=== PATIENT | male | born 1985 | race Two or more races ===

== ENCOUNTER 2023-07-02 13:11 | Emergency (ER) | payer OTHER, SELFPAY ==
[2023-07-02 13:14] VITALS: BP 141/90
--- NOTE | 2023-07-02 14:18 | ED.GENMED ---
History of Present Illness
General
Chief Complaint: Alcohol Problem
Time Seen by Provider: 07/02/23 13:58
Travel History
Have you had any contact with someone who has COVID-19?: No
Do you have any symptoms of coronavirus? Fever > 100 degrees, chills, cough, shortness of breath, sore throat, loss of taste or smell, muscle aches, or headache?: No
History of Present Illness
History of Present Illness:
38-year-old male with history of polysubstance abuse presents to the emergency department requesting inpatient alcohol detox/rehab. States he has been drinking alcohol consecutively for the past 10 days but is not consumed any alcohol in the past
24 to 48 hours. Does have a history of heroin abuse, states he has been sober from this for quite some time. Denies any suicidal or homicidal ideation. He does report generalized aches and pains currently but denies any other symptoms. Denies
any visual or auditory hallucinations. Denies any headache or vision changes. He does admit to using clonazepam earlier today to diminish his withdrawal symptoms
Past History
Past History
ED Past Medical History: Psychiatric (Substance abuse) and Other (DVT, migraines)
ED Past Surgical History: Negative Cardiac
Social History
Tobacco: Smoker
Alcohol: Occasional
Drug: Narcotics, IVDA and Other (Methamphetamine)
Personal: Single
Living: with family
Employment: Not employed
Family History
Family History: Hypertension
Review of Systems
Review of Systems
Allergies reviewed?: Yes
All Other Systems: ROS reviewed and negative except as documented in HPI and ROS
Phy Exam
Physical Exam
Physical Exam:
GEN: Well appearing, NAD, WDWN
HEENT: Oral mucosa moist, no scleral icterus
Cardiac: Regular rate and rhythm, no murmurs
Lung: No respiratory distress, no tachypnea
MSK: No gross deformity or injuries
Skin: Good color, no pallor or jaundice, no rashes, numerous extremity track jorge from prior IV drug abuse
Neuro: AO x3, moves all extremities freely
Psych: Calm, cooperative
Scores
Withdrawal Assessment of Alcohol
Withdrawal Assessment Completed?: No
Course
Orders/Labs/Results
Orders:
Orders
07/02/23 14:37
Acetaminophen [Tylenol] 650 mg PO NOW STA
Ibuprofen [Motrin] 400 mg PO NOW STA
Vital Signs
Initial and Last Documented VS:
Initial Vital Signs
Temp Pulse Resp BP Pulse Ox
98.2 F 94 20 141/90 97
07/02/23 13:14 07/02/23 13:14 07/02/23 13:14 07/02/23 13:14 07/02/23 13:14
Last Documented Vital Signs
Temp Pulse Resp BP Pulse Ox
98.2 F 90 18 138/78 98
07/02/23 13:14 07/02/23 15:46 07/02/23 15:46 07/02/23 15:46 07/02/23 15:46
MDM/Problems Addressed
MDM/Problems Addressed:
Patient is requesting inpatient placement with detox for alcohol abuse. He does not display any active withdrawal symptoms at this time however this can be somewhat masked by his clonazepam use. He denies any other substance abuse. He denies any
acute medical complaints. Vital signs are reassuring. Patient is medically stable from my evaluation for inpatient alcohol detox placement
*Critical Care Note
Total Time (30-74mins, 75-104mins- exclusive of procedures): Not Applicable
ED Attending Note
-
Portions of this chart may have been created with voice recognition software.� Occasional wrong word or��sound alike� substitutions may have occurred due to the inherent limitations of voice recognition software.
Discharge Plan
Departure
Patient Disposition: Acute Rehab Facility
Date of Disposition: 07/02/23
Time of Disposition: 15:38
Discharge Problem:
Alcohol abuse
Instructions: Alcohol Use Disorder (DC)
Prescriptions:
No Action
clonazepam 1 MG tablet
1 mg PO TID
Patient Comments:
01/05/2021: last filled 12/11/20, 90 tabs for 30 days from [facility]
PT STATES MED WAS STOLEN
Interventions
Interventions:
*Risk Screen - Suicide Last Done: 07/02/23 14:11
*Neglect/Abuse Screening Last Done: 07/02/23 14:11
*Nursing Disposition Last Done: 07/02/23 15:49
ED- Neurological Assessment Last Done: 07/02/23 14:11
ED-Psychological Assessment Last Done: 07/02/23 14:11
Discharge Date and Time
Discharge Date/Time: 07/02/23 15:50
[2023-07-02] MEDS: TYLENOL 650 MG PO (14:50)
[2023-07-02] MEDS: MOTRIN 400 MG PO (14:51)
[2023-07-02 15:46] VITALS: BP 138/78
== END 2023-07-02 15:50 ==
LOC: EMR 13:11
PROVIDERS: EMERGENCY PHYSICIAN Emergency Medicine
DX: F10.10 Alcohol abuse, uncomplicated (principal); F17.200 Nicotine dependence, unspecified, uncomplicated; Z82.49 Family history of ischemic heart disease and other diseases of the circulatory system; Z86.718 Personal history of other venous thrombosis and embolism
CPT/HCPCS: 99282

== ENCOUNTER 2023-10-14 06:31 | Emergency (ER) | payer OTHER, SELFPAY ==
[2023-10-14 06:31] VITALS: BP 123/96
[2023-10-14 07:39] VITALS: BMI 28.3
--- NOTE | 2023-10-14 07:55 | ED.GENMED ---
History of Present Illness
General
Chief Complaint: Substance Abuse
Source: patient
Exam Limitations: none
Time Seen by Provider: 10/14/23 07:45
History of Present Illness
History of Present Illness:
38-year-old male presents stating that he is here to seek help through the drug and alcohol abuse specialist for fentanyl and xylazine. He states he stopped using about 6 days ago. He was also using methamphetamine. He denies alcohol use. He
denies chest pain or shortness of breath. He notes fatigue. He does have a history of alcohol abuse but currently denies the use of such currently.
Past History
Past History
ED Past Medical History: Psychiatric (Substance abuse) and Other (DVT, migraines)
ED Past Surgical History: Negative Cardiac
Social History
Tobacco: Smoker
Alcohol: Occasional
Drug: Narcotics, IVDA and Other (Methamphetamine)
Personal: Single
Living: with family
Employment: Not employed
Family History
Family History: Hypertension
Phy Exam
Physical Exam
Physical Exam:
General: Well developed male no acute respiratory distress
HEENT: Normocephalic atraumatic pupils equal round reactive to light
Heart: Regular rate and rhythm no murmurs
Lungs: Clear no wheeze or rales
Extremities: No cyanosis or edema
Neurologic exam: Alert responds to verbal stimuli does seem somewhat somnolent
Course
Vital Signs
Initial and Last Documented VS:
Initial Vital Signs
Temp Pulse Resp BP Pulse Ox
98.5 F 90 18 123/96 98
10/14/23 06:31 10/14/23 06:31 10/14/23 06:31 10/14/23 06:31 10/14/23 06:31
Last Documented Vital Signs
Temp Pulse Resp BP Pulse Ox
98.5 F 62 15 127/84 98
10/14/23 06:31 10/14/23 09:02 10/14/23 09:02 10/14/23 09:02 10/14/23 09:02
MDM/Problems Addressed
Differential Diagnosis Includes:
Patient here requesting help with [facility] for detox from opiates. No fevers. Vital signs are stable. Resting comfortably. [facility]
*Critical Care Note
Total Time (30-74mins, 75-104mins- exclusive of procedures): Not Applicable
Update Note
Update Note:
Patient was evaluated by [facility]. They will set up rehab as an outpatient. No indication for any further intervention or evaluation here. Stable for discharge
ED Attending Note
-
Portions of this chart may have been created with voice recognition software.� Occasional wrong word or��sound alike� substitutions may have occurred due to the inherent limitations of voice recognition software.
Discharge Plan
Departure
Patient Disposition: Home (Routine Discharge)
Date of Disposition: 10/14/23
Time of Disposition: 12:07
Patient with high blood pressure during this ER visit?: No
Discharge Problem:
Substance abuse
Prescriptions:
No Action
clonazepam 1 MG tablet
1 mg PO BID
Patient Comments:
01/05/2021: last filled 12/11/20, 90 tabs for 30 days from [facility]
PT STATES MED WAS STOLEN
dextroamphetamine-amphetamine [Adderall] 30 mg Tablet
30 mg PO BID
Referrals:
UNKNOWN - PT NOT,INTERVIEWE [Family Provider] -
Activity Restrictions/Additional Instructions:
Please seek further treatment as recommended by [facility]
Interventions
Interventions:
*Risk Screen - Suicide Last Done: 10/14/23 06:31
*General Assessment Last Done: 10/14/23 06:31
*Neglect/Abuse Screening Last Done: 10/14/23 06:31
ED- Fall Risk Assessment Last Done: 10/14/23 08:10
*ED COVID-19 Vaccine History Last Done: 10/14/23 07:29
ED-Psychological Assessment Last Done: 10/14/23 07:47
Discharge Date and Time
Print Language: HEBREW
[2023-10-14 08:10] VITALS: BP 128/62
[2023-10-14 09:02] VITALS: BP 127/84
== END 2023-10-14 12:34 | disposition home or self-care (01) ==
LOC: EMR 06:31
PROVIDERS: EMERGENCY PHYSICIAN Emergency Medicine
DX: F15.10 Other stimulant abuse, uncomplicated (principal); F10.90 Alcohol use, unspecified, uncomplicated; R53.83 Other fatigue; G43.909 Migraine, unspecified, not intractable, without status migrainosus; F17.200 Nicotine dependence, unspecified, uncomplicated; Z86.718 Personal history of other venous thrombosis and embolism; Z88.8 Allergy status to other drugs, medicaments and biological substances
CPT/HCPCS: 99283

== ENCOUNTER 2024-01-12 01:46 | Emergency (ER) | payer OTHER, SELFPAY ==
[2024-01-12 01:49] VITALS: BP 130/76
--- NOTE | 2024-01-12 02:37 | ED.SKININJ ---
HPI-Injury
General
Chief Complaint: Skin Problem
Source: patient
Exam Limitations: none
Time Seen by Provider: 01/12/24 02:26
History of Present Illness-Injury
Initial Injury comments:
38-year-old male presents with increased swelling and pain to the right leg starting 3 days ago. He states he got a piece of wood or splinter in his knee that he was able to remove in its entirety. It started to swell up some and today he squeezed
on it and received some pus. He denies fever or chills. No nausea vomiting. Notes increased swelling about the leg. No other complaints
Past History
Past History
ED Past Medical History: Psychiatric (Substance abuse) and Other (DVT, migraines)
ED Past Surgical History: Negative Cardiac
Social History
Tobacco: Smoker
Alcohol: Occasional
Drug: Narcotics, IVDA and Other (Methamphetamine)
Personal: Single
Living: with family
Employment: Not employed
Family History
Family History: Hypertension
Phy Exam
Physical Exam
Physical Exam:
General: Well-appearing male no acute respiratory distress
HEENT: Normocephalic
Skin: Erythema and soft tissue swelling noted over the prepatellar area of the right knee spreading into the right dorantes. There is no intra-articular effusion. He has full extension and full flexion of the right knee. No palpable or visible
foreign body
Vascular: 2+ dorsalis pedis pulse right foot
Course
Orders/Labs/Results
Orders:
Orders
01/12/24 02:36
Cephalexin Monohydrate [Keflex] 500 mg PO NOW STA
Sulfamethox./Trimethoprim Ds [Bactrim Ds 800 mg/160 mg] 1 tablet PO NOW STA
Vital Signs
Initial and Last Documented VS:
Initial Vital Signs
Temp Pulse Resp BP Pulse Ox
98.1 F 87 18 130/76 100
01/12/24 01:49 01/12/24 01:49 01/12/24 01:49 01/12/24 01:49 01/12/24 01:49
Last Documented Vital Signs
Temp Pulse Resp BP Pulse Ox
98.1 F 87 18 130/76 100
01/12/24 01:49 01/12/24 01:49 01/12/24 01:49 01/12/24 01:49 01/12/24 01:49
MDM/Problems Addressed
Differential Diagnosis Includes:
Patient had foreign body in his right knee that he was able to remove however since then has become more swollen and painful. No exam findings consistent with septic arthritis. He has great range of motion of the knee. I suspect cellulitis.
There is no fluctuance on exam to suggest underlying abscess. He is healthy with stable vital signs. Had discussion regarding treatment options between IV antibiotics and oral antibiotics. He preferred not to stay in the hospital. Will start him
on Bactrim and Keflex. The first dose was given tonight and he will be discharged with a prescription for the same and strict return precautions.
*Critical Care Note
Total Time (30-74mins, 75-104mins- exclusive of procedures): Not Applicable
ED Attending Note
-
Portions of this chart may have been created with voice recognition software.� Occasional wrong word or��sound alike� substitutions may have occurred due to the inherent limitations of voice recognition software.
Discharge Plan
Departure
Patient Disposition: Home (Routine Discharge)
Date of Disposition: 01/12/24
Time of Disposition: 02:40
Patient with high blood pressure during this ER visit?: No
Discharge Problem:
Cellulitis
Prescriptions:
New
sulfamethoxazole-trimethoprim [Bactrim DS] 800-160 mg tablet
1 tab PO BID Qty: 14 0RF
cephalexin 500 mg capsule
500 mg PO QID 7 Days Qty: 28 0RF
No Action
clonazepam 1 MG tablet
1 mg PO BID
Patient Comments:
01/05/2021: last filled 12/11/20, 90 tabs for 30 days from [facility]
PT STATES MED WAS STOLEN
dextroamphetamine-amphetamine [Adderall] 30 mg Tablet
30 mg PO BID
Activity Restrictions/Additional Instructions:
Use warm compresses to the area. Take antibiotics as directed. Please return here for increasing swelling fever nausea vomiting or other concerning findings.
Interventions
Interventions:
*Risk Screen - Suicide Last Done: 01/12/24 01:49
*General Assessment Last Done: 01/12/24 01:49
*Neglect/Abuse Screening Last Done: 01/12/24 01:49
ED- Fall Risk Assessment Last Done: 01/12/24 02:07
Discharge Date and Time
Print Language: DIVEHI
[2024-01-12] MEDS: BACTRIM DS 800 MG/160 MG 1 TABLET PO (02:47)
[2024-01-12] MEDS: KEFLEX 500 MG PO (02:48)
[2024-01-12 03:20] VITALS: BP 128/72
== END 2024-01-12 03:22 | disposition home or self-care (01) ==
LOC: EMR 01:46
PROVIDERS: EMERGENCY PHYSICIAN Student in an Organized Health Care Education/Training Program
DX: L03.115 Cellulitis of right lower limb (principal); M79.604 Pain in right leg; G43.909 Migraine, unspecified, not intractable, without status migrainosus; F17.200 Nicotine dependence, unspecified, uncomplicated; Z86.718 Personal history of other venous thrombosis and embolism; F19.11 Other psychoactive substance abuse, in remission; Z88.8 Allergy status to other drugs, medicaments and biological substances
CPT/HCPCS: 99283

== ENCOUNTER 2024-11-23 23:03 | Emergency (ER) | payer OTHER, SELFPAY ==
[2024-11-23 23:07] VITALS: BP 152/104
--- NOTE | 2024-11-23 23:57 | ED.GENMED ---
ED Provider Triage
<Asha Canales PA-C - Last Filed: 11/26/24 06:27>
-
Patient seen by provider in Triage?: Seen in Triage
Attestation: A medical screening examination has been initiated by a qualified medical provider. Based on the assessment performed at this time, it has been determined that an emergent medical condition may exist and the patient has been informed
that further medical evaluation and possible additional diagnostic testing may be needed.
HPI: 39yoM here with dizziness that began 1 hour FITTER UP. Described as lightheadedness. Denies vertigo. Also c/o heart racing and headaches which is unusual for him. Admits to using heroin earlier today and believes it was laced with tranquilizer.
GENERAL: Alert , in no apparent distress
EYE: No visual abnormalities.
NECK: Trachea midline
ENT: No visible abnormalities.
LUNGS: No acute respiratory distress
NEUROLOGICAL: Alert and oriented
SKIN: Skin intact. No visible changes.
MUSCULOSKELETAL: Moving extremities normally
PSYCH: Normal and appropriate interaction.
This is a medical evaluation conducted in person to initiate diagnostic evaluation and provide initial therapeutics. Please see further documentation by the treating clinician.
Cardiac labs, mag, TSH, EKG, CXR, and CT head ordered.
History of Present Illness
<Asha Canales PA-C - Last Filed: 11/26/24 06:27>
General
Chief Complaint: Heart Rate Problem
Time Seen by Provider: 11/24/24 00:59
<Brooklynn Roberts MD - Last Filed: 11/24/24 01:43>
General
Source: patient and family
History of Present Illness
History of Present Illness:
39-year-old male with a history of substance use disorder, has been in recovery until approximately 2 to 3 weeks ago when he again started to snort fentanyl he states 2-3 bags a day. Recently, he notes that he does not feel well after using the
drug, described as feeling like his heart is beating fast sometimes, sweaty, and cold. Today, he snorted fentanyl at approximately 4 PM and by 9 PM felt very unwell, described as palpitations, headaches, sweats, and dizzy. Since then, patient now
feels significantly better. He suspects that the fentanyl was laced with an adulterant. He thinks he has been exposed to xylazine in the past, but he is not clear if he is ever been exposed to medetomidine. He has used methamphetamine in the past
but states that this did not feel like methamphetamine use. Patient declined services or referrals for recovery at this time states that he has things to do, and knows how to access resources. Of note, patient is being treated for a infection at
the left patellar area that is resolving, and he is taking p.o. Bactrim for this.
Past History
<Asha Canales PA-C - Last Filed: 11/26/24 06:27>
Past History
ED Past Medical History: Psychiatric (Substance abuse) and Other (DVT, migraines)
ED Past Surgical History: Negative Cardiac
Social History
Tobacco: Smoker
Alcohol: Occasional
Drug: Narcotics, IVDA and Other (Methamphetamine)
Personal: Single
Living: with family
Employment: Not employed
Family History
Family History: Hypertension
Phy Exam
<Brooklynn Roberts MD - Last Filed: 11/24/24 01:43>
Physical Exam
Physical Exam:
GENERAL: Alert , in no apparent distress
EYE: pupils equal and reactive
NECK: Supple, no significant adenopathy.
ENT: o/p clr, mmm.
CARDIAC: Regular rate and rhythm .
LUNGS: Clear breath sounds bilaterally, no acute respiratory distress, no wheezes/rales/rhonchi
ABDOMEN: Soft, without focal tenderness, no r/g, no cvat
NEUROLOGICAL: Alert and oriented, no focal neuro deficits
SKIN: Warm and dry, skin intact. There is an area of mild erythema L knee patellar area, no fluctuance/drainage/streaking
MUSCULOSKELETAL: No edema, well perfused.
PSYCH: Normal and appropriate interaction, no si/hi.
Course
<Asha Canales PA-C - Last Filed: 11/26/24 06:27>
Orders/Labs/Results
Orders:
Orders
11/23/24 23:10
Electrocardiogram (*1) Urgent
Reason for Study: Tachycardia
Comprehensive Metabolic Panel Urgent
Magnesium Urgent
Troponin I Urgent
Urine Drug Abuse Screen Urgent
Date Specimen was Collected: 11/23/24
Time Specimen was Collected: 23:10
11/23/24 23:11
EKG- Treatment ONCE
11/23/24 23:56
TSH Reflex To Free T4 Urgent
11/24/24 01:19
Fentanyl, Urine Urgent
Abnormal Lab Results
11/24/24 11/24/24
00:27 01:19
Total Protein 8.3 H g/dl
(6.3-8.2)
Urine Fentanyl Screen Positive H
(Negative)
Ur Amphetamines Screen Positive H
(Negative)
U Methamphetamines Scrn Positive H
(Negative)
U Benzodiazepines Scrn Positive H
(Negative)
11/24/24 00:49
11/24/24 00:27
Vital Signs
Initial and Last Documented VS:
Initial Vital Signs
Pulse Resp BP Pulse Ox
128 32 152/104 100
11/23/24 23:07 11/23/24 23:07 11/23/24 23:07 11/23/24 23:07
Last Documented Vital Signs
Temp Pulse Resp BP Pulse Ox
97.8 F 82 16 156/72 99
11/24/24 01:10 11/24/24 01:10 11/24/24 01:10 11/24/24 01:10 11/24/24 01:10
<Brooklynn Roberts MD - Last Filed: 11/24/24 01:43>
Orders/Labs/Results
Orders:
Orders
11/23/24 23:10
Electrocardiogram (*1) Urgent
Reason for Study: Tachycardia
Comprehensive Metabolic Panel Urgent
Magnesium Urgent
Troponin I Urgent
Urine Drug Abuse Screen Urgent
Date Specimen was Collected: 11/23/24
Time Specimen was Collected: 23:10
11/23/24 23:11
EKG- Treatment ONCE
11/23/24 23:56
TSH Reflex To Free T4 Urgent
11/24/24 01:19
Fentanyl, Urine Urgent
Abnormal Lab Results
11/24/24 11/24/24
00:27 01:19
Total Protein 8.3 H g/dl
(6.3-8.2)
Urine Fentanyl Screen Positive H
(Negative)
Ur Amphetamines Screen Positive H
(Negative)
U Methamphetamines Scrn Positive H
(Negative)
U Benzodiazepines Scrn Positive H
(Negative)
11/24/24 00:49
11/24/24 00:27
Vital Signs
Initial and Last Documented VS:
Initial Vital Signs
Pulse Resp BP Pulse Ox
128 32 152/104 100
11/23/24 23:07 11/23/24 23:07 11/23/24 23:07 11/23/24 23:07
Last Documented Vital Signs
Temp Pulse Resp BP Pulse Ox
97.8 F 82 16 156/72 99
11/24/24 01:10 11/24/24 01:10 11/24/24 01:10 11/24/24 01:10 11/24/24 01:10
<Asha Canales PA-C - Last Filed: 11/26/24 06:27>
*Pulse Oximetry
SaO2: 100
Oxygen Mode of Delivery: Room air
<Brooklynn Roberts MD - Last Filed: 11/24/24 01:43>
Update Note
Update Note:
Patient presents to the Emergency Department with headache, dizziness, palpitations, diaphoresis
Number and Complexity of Problems Addressed at the Encounter
� Chronic conditions affecting care:
� Acute Exacerbation and/or Progression of Chronic Illness:
� Differential Diagnosis includes: But not limited to illicit drug effect, anxiety, electrolyte disorder, etc.
Amount and/or Complexity of Data to be Reviewed and Analyzed
� I performed an independent evaluation of and my interpretation is:
EKG:
CT:
Xrays:
Laboratory Studies: Generally unremarkable. Of note, CBC hemolyzed, patient declines repeat testing, eager to go home.
Other:
� Review of other/old records reveals:
� Clinical information was obtained by an independent historian: Father who is bedside
� Prescriptions/Medications Considered but not given:
� Further testing considered but not performed:
Risk of Complications and/or Morbidity or Mortality of Patient Management
� Social determinants of health affecting care:
� Discussion with other providers (PCP, Hospitalists, Consultants, etc):
� Escalation of care including admission/observation vs risk of discharge considered: 1:35 AM Long discussion with patient regarding resources for recovery etc. He still declines at this time but understands that if he changes
his mind we are eager to offer him assistance. He now has a normal heart rate, normal pulse ox, and only mild hypertension. He feels much better and is not anxious or diaphoretic. Suspect symptoms related to illicit drug use. Discussed with
patient importance of follow-up and reasons to return to the ER.
ED Attending Note
<Asha Canales PA-C - Last Filed: 11/26/24 06:27>
-
Portions of this chart may have been created with voice recognition software.� Occasional wrong word or��sound alike� substitutions may have occurred due to the inherent limitations of voice recognition software.
Discharge Plan
Departure
Patient Disposition: Home (Routine Discharge)
Date of Disposition: 11/24/24
Time of Disposition: 01:43
Patient with high blood pressure during this ER visit?: Yes
Condition: Good
Discharge Problem:
Narcotic abuse, Palpitations
Instructions: Palpitations (DC), BLOOD PRESSURE
Prescriptions:
No Action
clonazepam 1 MG tablet
1 mg PO BID
Patient Comments:
01/05/2021: last filled 12/11/20, 90 tabs for 30 days from [facility]
PT STATES MED WAS STOLEN
dextroamphetamine-amphetamine [Adderall] 30 mg Tablet
30 mg PO BID
sulfamethoxazole-trimethoprim [Bactrim DS] 800-160 mg tablet
1 tab PO BID Qty: 14 0RF
cephalexin 500 mg capsule
500 mg PO QID 7 Days Qty: 28 0RF
Activity Restrictions/Additional Instructions:
IF YOU DEVELOP CHEST PAIN, TROUBLE BREATHING, PALPITATIONS, FEVER, VOMITING, DIZZINESS, OR OTHER WORRISOME SIGNS, GO TO THE ER IMMEDIATELY!
Interventions
Interventions:
*Risk Screen - Suicide Last Done: 11/23/24 23:07
*Neglect/Abuse Screening Last Done: 11/23/24 23:07
*Nursing Disposition Last Done: 11/24/24 01:53
ED- Cardiac Assessment Last Done: 11/24/24 00:30
ED- Pulmonary Assessment Last Done: 11/24/24 00:30
Discharge Date and Time
Discharge Date/Time: 11/24/24 01:54
Print Language: PERUVIAN
[2024-11-24 00:57] LABS: ALT (SGPT) 25 U/L (0-50); AST (SGOT) 38 U/L (17-59); Albumin 4.8 g/dl (3.5-5.0); Alkaline Phosphatase 107 U/L (38-126); Blood Urea Nitrogen 18 mg/dl (9-20); Calcium 9.2 mg/dl (8.4-10.2); Carbon Dioxide 25 mmol/L (22-30); Chloride 105 mmol/L (98-107); Glucose 90 mg/dl (70-99); Magnesium 2.2 mg/dl (1.6-2.3); Potassium 4.8 mmol/L (3.5-5.1); Sodium 139 mmol/L (135-145); Total Protein 8.3 g/dl (6.3-8.2); eGFR > 60.00
[2024-11-24 01:08] LABS: Troponin I < 0.012 ng/ml
[2024-11-24 01:10] VITALS: BP 156/72; BMI 29.1
== END 2024-11-24 01:54 | disposition home or self-care (01) ==
LOC: EMR 23:03
PROVIDERS: Physician Assistant; EMERGENCY PHYSICIAN Emergency Medicine
DX: F11.10 Opioid abuse, uncomplicated (principal); R00.2 Palpitations; R51.9 Headache, unspecified; F17.200 Nicotine dependence, unspecified, uncomplicated; I10 Essential (primary) hypertension; Z82.49 Family history of ischemic heart disease and other diseases of the circulatory system; Z86.718 Personal history of other venous thrombosis and embolism
CPT/HCPCS: 99283; 80053; 80306; 80307; 83735; 84443; 84484; 93005

== ENCOUNTER 2025-01-31 02:13 | Emergency (ER) | payer OTHER, SELFPAY ==
[2025-01-31] VITALS (7 sets, daily range): BP systolic 109–137; BP diastolic 72–95; BMI 28.9
[2025-01-31] MEDS: NARCAN 2 MG NASAL (02:32)
[2025-01-31] MEDS: NARCAN 2 MG IV ×5 (02:35→02:56)
[2025-01-31 03:03] LABS: Hematocrit 34.1 % (39.0-52.0); Hemoglobin 12.0 g/dL (13.0-18.0); Mean Corp Hgb Conc. 35.2 g/dL (33.0-37.0); Mean Corpuscular Volume 78.4 fL (80.0-94.0); Nucleated Red Blood Cells % 0 % (-); Red Cell Dist. Width 13.5 % (11.5-14.5)
[2025-01-31 03:17] LABS: Blood Urea Nitrogen 17 mg/dl (9-20); Calcium 8.9 mg/dl (8.4-10.2); Carbon Dioxide 25 mmol/L (22-30); Chloride 107 mmol/L (98-107); Estimated Creatinine Clearance > 125 ml/min; Glucose 127 mg/dl (70-99); Sodium 138 mmol/L (135-145); eGFR > 60.00
[2025-01-31] MEDS: NSS 1000 IV (03:23)
[2025-01-31 03:59] LABS: INR 1.15; PT 15.0 Sec (11.4-14.6)
[2025-01-31 03:59] LABS: Platelet Count 197 10^3/uL (130-400)
[2025-01-31 04:00] LABS: APTT 36.8 Sec (23.4-35.0)
[2025-01-31 04:09] LABS: Acetaminophen < 10 ug/ml (10-30); Salicylate < 1.0 mg/dl (2.0-20.0)
--- NOTE | 2025-01-31 07:37 | ED.GENMED ---
History of Present Illness
<Ricci RodriguezGuera Barbosa, DO - Last Filed: 02/01/25 01:39>
General
Chief Complaint: Overdose Intentional
Source: patient
Time Seen by Provider: 01/31/25 02:57
Nursing documentation reviewed up to this point in time: agreed with
History of Present Illness
History of Present Illness:
Note:
CHIEF COMPLAINT(S)
Altered mental status following suspected opioid overdose.
HISTORY OF PRESENT ILLNESS
The patient is a 39-year-old male who was brought in by [facility] ([facility] after being found unresponsive. The EMS report indicates that the patient was pulseless and apneic upon their arrival. Narcan (naloxone) was administered
intranasally and intravenously, with some initial response noted. The patient became momentarily alert enough to walk to the structure but subsequently became unresponsive again.
Upon arrival at the emergency department, the patient was found to have severely constricted pupils, consistent with opioid overdose. Additional doses of Narcan were administered intravenously in the emergency department, totaling 10 milligrams IV
and 4 milligrams intranasally, without adequate improvement in responsiveness. Throughout the administration, the patients vitals were monitored, and no significant changes were noted except for periodic consciousness and slurred speech.
The patient was reportedly with a female sap payroll consultant who fled the scene; there is no further significant history available regarding substance use or existing health conditions from the patient directly due to his altered state.
ADDITIONAL HISTORY OBTAINED FROM SOURCE OTHER THAN THE PATIENT
According to EMS, the patient was initially found unresponsive with no pulse or spontaneous breathing. They administered Narcan intranasally and intravenously, resulting in partial and temporary alertness. The patient had been on a bus with a female
sap payroll consultant who was not present upon EMS arrival.
PHYSICAL EXAM
General: The patient is unresponsive, with alternating states of consciousness.
Skin: Warm and dry.
Head: Normocephalic, atraumatic.
Neck: Supple, trachea midline.
Eye Ears, nose, mouth and throat: Oral mucosa moist, pupils severely constricted.
Cardiovascular: Normal peripheral perfusion, no edema.
Respiratory: Respirations are shallow, assisted by high-flow oxygen.
Gastrointestinal: Abdomen nondistended.
Back: Normal alignment, normal range of motion.
Musculoskeletal: Normal range of motion, unable to assess strength due to unresponsiveness.
Neurological: Unresponsive to verbal stimulus, pupils severely constricted.
Psychiatric: No mood or affect could be assessed due to unresponsiveness.
PLAN
1. Continuous monitoring of vital signs and respiratory status.
2. Further administration of naloxone as needed to manage opioid overdose.
3. Consultation with Respiratory Therapy for possible intubation if no significant improvement in respiratory status.
4. Consideration of admission to Intensive Care Unit for further management if warranted by the patient�s condition.
DIFFERENTIAL DIAGNOSIS
The Differential Diagnosis includes, in no particular order and is not limited to:
1. Opioid overdose
2. Benzodiazepine overdose
3. Alcohol intoxication
4. Hypoglycemia
5. Intracranial event (e.g., stroke, hemorrhage)
6. Sepsis
7. Electrolyte imbalance
8. Polypharmacy or mixed drug toxicity
9. Acute respiratory failure
10. Anaphylaxis (to substances or factors unknown)
CARE-UPDATE
01/31/25 - 07:37
Patient stabilized after administration of 12 mg of Narcan for opioid overdose. Breathing is currently stable, and the patient is in the process of sobering up. Upon discharge, the patient will be detained by [place] police due to an outstanding
arrest warrant, as per their request.
Past History
<Ricci Barbosa, - Last Filed: 02/01/25 01:39>
Past History
ED Past Medical History: Psychiatric (Substance abuse) and Other (DVT, migraines)
ED Past Surgical History: Negative Cardiac
Social History
Tobacco: Smoker
Alcohol: Occasional
Drug: Narcotics, IVDA and Other (Methamphetamine)
Personal: Single
Living: with family
Employment: Not employed
Family History
Family History: Hypertension
Phy Exam
<Asim Huang, DO - Last Filed: 01/31/25 14:50>
Physical Exam
Physical Exam:
.
Course
<Ricci Barbosa, DO - Last Filed: 02/01/25 01:39>
Orders/Labs/Results
Orders:
Orders
01/31/25 02:23
Naloxone [Narcan] 0.4 mg .ROUTE .STK-MED ONE
01/31/25 02:31
Naloxone [Narcan] 2 mg .ROUTE .STK-MED ONE
Naloxone [Narcan] 2 mg NASAL NOW STA
01/31/25 02:35
Naloxone [Narcan] 2 mg IV NOW STA
01/31/25 02:37
Naloxone [Narcan] 8 mg .ROUTE .STK-MED ONE
01/31/25 02:38
Naloxone [Narcan] 2 mg IV NOW STA
01/31/25 02:40
Naloxone [Narcan] 2 mg IV NOW STA
01/31/25 02:44
Naloxone [Narcan] 2 mg IV NOW STA
01/31/25 02:52
Basic Metabolic Panel Urgent
Complete Blood Count/With Diff Urgent
01/31/25 02:55
Naloxone [Narcan] 2 mg IV NOW STA
Naloxone [Narcan] 4 mg .ROUTE .STK-MED ONE
01/31/25 03:02
0.9% Sodium Chloride 1000 ml [Nss] 1,000 ml IV BOLUS
01/31/25 03:28
Acetaminophen Urgent
Alcohol Urgent
PTT Urgent
Prothrombin Time Urgent
Salicylate Urgent
Abnormal Lab Results
01/31/25 01/31/25
02:52 03:28
RBC 4.35 L 10^6/uL
(4.70-6.10)
Hgb 12.0 L g/dL
(13.0-18.0)
Hct 34.1 L %
(39.0-52.0)
MCV 78.4 L fL
(80.0-94.0)
MPV 11.0 H fL
(7.4-10.4)
Absolute Monos (auto) 0.7 H 10^3/uL
(0.1-0.6)
PT 15.0 H Sec
(11.4-14.6)
APTT 36.8 H Sec
(23.4-35.0)
Glucose 127 H mg/dl
(70-99)
Salicylates < 1.0 L mg/dl
(2.0-20.0)
Acetaminophen < 10 L ug/ml
(10-30)
01/31/25 02:52
01/31/25 02:52
Vital Signs
Initial and Last Documented VS:
Initial Vital Signs
Pulse Resp Pulse Ox
57 19 98
01/31/25 02:50 01/31/25 02:50 01/31/25 02:50
Last Documented Vital Signs
Pulse Resp BP Pulse Ox
0 16 127/90 96
01/31/25 05:00 01/31/25 07:00 01/31/25 07:00 01/31/25 07:38
<Asim Huang, DO - Last Filed: 01/31/25 14:50>
Orders/Labs/Results
Orders:
Orders
01/31/25 02:23
Naloxone [Narcan] 0.4 mg .ROUTE .STK-MED ONE
01/31/25 02:31
Naloxone [Narcan] 2 mg .ROUTE .STK-MED ONE
Naloxone [Narcan] 2 mg NASAL NOW STA
01/31/25 02:35
Naloxone [Narcan] 2 mg IV NOW STA
01/31/25 02:37
Naloxone [Narcan] 8 mg .ROUTE .STK-MED ONE
01/31/25 02:38
Naloxone [Narcan] 2 mg IV NOW STA
01/31/25 02:40
Naloxone [Narcan] 2 mg IV NOW STA
01/31/25 02:44
Naloxone [Narcan] 2 mg IV NOW STA
01/31/25 02:52
Basic Metabolic Panel Urgent
Complete Blood Count/With Diff Urgent
01/31/25 02:55
Naloxone [Narcan] 2 mg IV NOW STA
Naloxone [Narcan] 4 mg .ROUTE .STK-MED ONE
01/31/25 03:02
0.9% Sodium Chloride 1000 ml [Nss] 1,000 ml IV BOLUS
01/31/25 03:28
Acetaminophen Urgent
Alcohol Urgent
PTT Urgent
Prothrombin Time Urgent
Salicylate Urgent
Abnormal Lab Results
01/31/25 01/31/25
02:52 03:28
RBC 4.35 L 10^6/uL
(4.70-6.10)
Hgb 12.0 L g/dL
(13.0-18.0)
Hct 34.1 L %
(39.0-52.0)
MCV 78.4 L fL
(80.0-94.0)
MPV 11.0 H fL
(7.4-10.4)
Absolute Monos (auto) 0.7 H 10^3/uL
(0.1-0.6)
PT 15.0 H Sec
(11.4-14.6)
APTT 36.8 H Sec
(23.4-35.0)
Glucose 127 H mg/dl
(70-99)
Salicylates < 1.0 L mg/dl
(2.0-20.0)
Acetaminophen < 10 L ug/ml
(10-30)
01/31/25 02:52
01/31/25 02:52
Vital Signs
Initial and Last Documented VS:
Initial Vital Signs
Pulse Resp Pulse Ox
57 19 98
01/31/25 02:50 01/31/25 02:50 01/31/25 02:50
Last Documented Vital Signs
Pulse Resp BP Pulse Ox
0 16 127/90 96
01/31/25 05:00 01/31/25 07:00 01/31/25 07:00 01/31/25 07:38
<Ricci Barbosa, DO - Last Filed: 02/01/25 01:39>
*Pulse Oximetry
SaO2: 96
Oxygen Mode of Delivery: Room air
*Critical Care Note
Total Time (30-74mins, 75-104mins- exclusive of procedures): Not Applicable
<Asim Huang, DO - Last Filed: 01/31/25 14:50>
*Pulse Oximetry
Patient hypoxic: no
<Asim Huang, DO - Last Filed: 01/31/25 14:50>
Update Note
Update Note:
0800 patient now awake and alert tolerated a meal. Drinking water. Awake and alert and ambulatory. No focal deficits no respiratory distress.
0811 patient declines B cares or Narcan
ED Attending Note
<Ricci Barbosa DO - Last Filed: 02/01/25 01:39>
-
Portions of this chart may have been created with voice recognition software.� Occasional wrong word or��sound alike� substitutions may have occurred due to the inherent limitations of voice recognition software.
Discharge Plan
Departure
Patient Disposition: Home (Routine Discharge)
Date of Disposition: 01/31/25
Time of Disposition: 08:10
Patient with high blood pressure during this ER visit?: No
Discharge Problem:
Substance abuse
Instructions: Accidental Overdose, Opioid overdose
Prescriptions:
No Action
clonazepam 1 MG tablet
1 mg PO BID
Patient Comments:
01/05/2021: [facility]20[facility] [address] [facility]
dextroamphetamine-amphetamine [Adderall] 30 mg Tablet
30 mg PO BID
sulfamethoxazole-trimethoprim [Bactrim DS] 800-160 mg tablet
1 tab PO BID Qty: 14 0RF
cephalexin 500 mg capsule
500 mg PO QID 7 Days Qty: 28 0RF
Referrals:
UNKNOWN - PT NOT,INTERVIEWE [Family Provider]
Activity Restrictions/Additional Instructions:
Please avoid and stop abusing and using drugs.
Interventions
Interventions:
*Risk Screen - Suicide Last Done: 01/31/25 02:59
*General Assessment Last Done: 01/31/25 02:59
*Neglect/Abuse Screening Last Done: 01/31/25 02:59
*ED COVID-19 Vaccine History Last Done: 01/31/25 02:59
*ED Influenza Vaccine History Last Done: 01/31/25 02:59
*Nursing Disposition Last Done: 01/31/25 08:15
ED- Cardiac Assessment Last Done: 01/31/25 02:59
ED- Neurological Assessment Last Done: 01/31/25 02:59
ED-Psychological Assessment Last Done: 01/31/25 02:59
ED- Pulmonary Assessment Last Done: 01/31/25 02:59
Discharge Date and Time
Discharge Date/Time: 01/31/25 08:15
Print Language: [place]
== END 2025-01-31 08:15 | disposition home or self-care (01) ==
LOC: EMR 02:13
PROVIDERS: EMERGENCY PHYSICIAN Student in an Organized Health Care Education/Training Program
DX: T50.902A Poisoning by unspecified drugs, medicaments and biological substances, intentional self-harm, initial encounter (principal); R40.4 Transient alteration of awareness; X58.XXXA Exposure to other specified factors, initial encounter; F17.200 Nicotine dependence, unspecified, uncomplicated; Z86.718 Personal history of other venous thrombosis and embolism
CPT/HCPCS: 96374; 96361; 99284; 80048; 80143; 80179; 82077; 85025; 85610; 85730